=== PATIENT | female | born 1940 | race Caucasian/White ===

== ENCOUNTER 2025-04-17 14:41 | Emergency (ER) | payer OTHER, SELFPAY ==
[2025-04-17 14:46] VITALS: BP 91/55
[2025-04-17 15:35] LABS: % Basophils 0.3 % (0-2); % Eosinophils 0.8 % (0-6); % Immature Granulocytes 1.5 % (0-0.5); % Monocytes 3.9 % (1.7-9.3); % Neutrophils 89.5 % (42.2-75.2); Absolute Basophils 0.1 10^3/uL (0-0.2); Absolute Eosinophils 0.2 10^3/uL (0-0.7); Absolute Immature Granulocytes 0.3 10^3/uL (0-0.05); Absolute Lymphocytes 0.7 10^3/uL (1.2-3.4); Absolute Monocytes 0.7 10^3/uL (0.1-0.6); Absolute Neutrophils 16.3 10^3/uL (1.4-6.5); Hematocrit 24.5 % (37.0-47.0); Hemoglobin 7.8 g/dL (12.0-16.0); Mean Corp Hgb Conc. 31.8 g/dL (33.0-37.0); Mean Corpuscular Hgb 28.1 pg (27.0-31.0); Mean Corpuscular Volume 88.1 fL (81.0-99.0); Nucleated Red Blood Cells % 0 %; Platelet Count 828 10^3/uL (130-400); Red Blood Cell Count 2.78 10^6/uL (4.20-5.40); Red Cell Dist. Width 28.7 % (11.5-14.5); White Blood Cell Count 18.3 10^3/uL (4.8-10.8)
[2025-04-17 15:36] LABS: ALT (SGPT) 22 U/L (0-35); AST (SGOT) 22 U/L (14-36); Albumin 2.1 g/dl (3.5-5.0); Alkaline Phosphatase 128 U/L (38-126); Blood Urea Nitrogen 36 mg/dl (7-17); Calcium 8.2 mg/dl (8.4-10.2); Carbon Dioxide 22 mmol/L (22-30); Chloride 112 mmol/L (98-107); Glucose 111 mg/dl (70-99); Potassium 3.2 mmol/L (3.5-5.1); Sodium 140 mmol/L (135-145); Total Bilirubin 0.8 mg/dl (0.2-1.3); eGFR 37.56
[2025-04-17 16:55] VITALS: BP 117/58
[2025-04-17 17:00] VITALS: BP 112/55
[2025-04-17 18:00] VITALS: BP 105/54
[2025-04-17 18:29] VITALS: BP 106/54
[2025-04-17 18:51] LABS: COVID-19 Antigen Negative (Negative)
--- NOTE | 2025-04-17 18:58 | ED.GENMED ---
History of Present Illness
General
Chief Complaint: Breathing Problem
Source: patient
Time Seen by Provider: 04/17/25 17:43
History of Present Illness
History of Present Illness:
84-year-old female with past medical history of hypertension, hyperlipidemia and recently diagnosed stomach ulcer, admitted at [facility] due to profound anemia requiring at least 4 unit of packed red blood cells, started on
Protonix presenting back to the emergency department at the request of her primary care provider who did a telehealth visit today with the patient and patient reportedly had a pulse ox of 86% on room air. Son who is currently with the patient
stating that patient has had a slight decline over the last few weeks, patient now living with him which is why they are here at this facility today. He notes that patient has been eating less than she had previously but no reports of coughing or
aspiration with eating, no reported fevers at home, patient denying any abdominal pain, chest pain or shortness of breath. Son states only other thing he noticed with the patient is that she does appear a little bit pale again.
Past History
Past History
ED Past Medical History: HTN, Hypercholesterolemia and Other (Anemia/GI bleeding)
ED Past Surgical History: Urological
Social History
Tobacco: Non-smoker
Alcohol: None
Drug: None
Personal:
Living: with family
Review of Systems
Review of Systems
All Other Systems: ROS reviewed and negative except as documented in HPI and ROS
Phy Exam
Physical Exam
Physical Exam:
GENERAL: Alert , in no apparent distress, thin, appears older than stated age
EYE: clear conjunctiva b/l
HEAD: NCAT
ENT: o/p clr, mmm.
CARDIAC: Regular rate and rhythm .
LUNGS: Clear breath sounds bilaterally, no acute respiratory distress, no wheezes/rales/rhonchi
ABDOMEN: Soft, without focal tenderness, no r/g, no cvat, negative Og sign, no tenderness at McBurney's point
RECTAL EXAM: Chaperoned by ED SAURABH Gambino, light brown stool, trace heme positive
NEUROLOGICAL: Alert and oriented
SKIN: Warm and dry, skin intact.
MUSCULOSKELETAL: No edema, well perfused.
PSYCH: Normal and appropriate interaction.
Scores
Heart Failure Risk
Heart Failure Risk Score: Not Applicable
Heart Score for Chest Pain Patients
STEMI patient?: Not applicable
Withdrawal Assessment of Alcohol
Withdrawal Assessment Completed?: Not applicable
Course
Orders/Labs/Results
Orders:
Orders
04/17/25 14:51
Electrocardiogram (*1) Urgent
Reason for Study: Shortness of Breath
EKG- Treatment ONCE
04/17/25 15:13
CMP [Comprehensive Metabolic Panel] Urgent
Complete Blood Count/With Diff Urgent
04/17/25 17:50
CR Chest - 2 Views Urgent
Comment:
Reason For Exam: SOB
04/17/25 18:08
COVID-19 Antigen Urgent
Source: Nasal Swab
Influenza A+B Rapid Molecular Urgent
YURI Source: Nasal Swab
Specimen Description:
04/17/25 18:38
0.9% Sodium Chloride 500 ml [Nss] 500 ml IV BOLUS
Cefepime HCl [Maxipime] 1,000 mg IV NOW STA
Potassium Chloride 10% Elixir [KCl Elixir] 40 meq PO NOW STA
04/17/25 18:54
Sterile Water [Sterile Water For Injection] 10 ml .ROUTE .STK-MED ONE
Abnormal Lab Results
04/17/25
15:13
WBC 18.3 H 10^3/uL
(4.8-10.8)
RBC 2.78 L 10^6/uL
(4.20-5.40)
Hgb 7.8 L g/dL
(12.0-16.0)
Hct 24.5 L %
(37.0-47.0)
MCHC 31.8 L g/dL
(33.0-37.0)
RDW 28.7 H %
(11.5-14.5)
Plt Count 828 H 10^3/uL
(130-400)
Abs Immat Gran (auto) 0.3 H 10^3/uL
(0-0.05)
Absolute Neuts (auto) 16.3 H 10^3/uL
(1.4-6.5)
Absolute Lymphs (auto) 0.7 L 10^3/uL
(1.2-3.4)
Absolute Monos (auto) 0.7 H 10^3/uL
(0.1-0.6)
Immature Gran % 1.5 H %
(0-0.5)
Neutrophils % 89.5 H %
(42.2-75.2)
Lymphocytes % 4.0 L %
(20.5-51.1)
Potassium 3.2 L mmol/L
(3.5-5.1)
Chloride 112 H mmol/L
(98-107)
BUN 36 H mg/dl
(7-17)
Creatinine 1.4 H mg/dL
(0.6-1.0)
Glucose 111 H mg/dl
(70-99)
Calcium 8.2 L mg/dl
(8.4-10.2)
Alkaline Phosphatase 128 H U/L
(38-126)
Total Protein 5.0 L g/dl
(6.3-8.2)
Albumin 2.1 L g/dl
(3.5-5.0)
04/17/25 15:13
04/17/25 15:13
Vital Signs
Initial and Last Documented VS:
Initial Vital Signs
Temp Pulse Resp BP Pulse Ox
98.3 F 95 18 91/55 97
04/17/25 14:46 04/17/25 14:46 04/17/25 14:46 04/17/25 14:46 04/17/25 14:46
Last Documented Vital Signs
Temp Pulse Resp BP Pulse Ox
98.3 F 83 24 106/56 97
04/17/25 14:46 04/17/25 19:15 04/17/25 19:15 04/17/25 19:07 04/17/25 18:35
[employer] consulted with Physician
[employer] consulted with physician?: Yes
Name of Physician Consulted: Dr. Vargas
MDM/Problems Addressed
Differential Diagnosis Includes:
Pneumonia, aspiration, recurring GI bleeding, malignancy
MDM/Problems Addressed:
84-year-old female presenting to the emergency department for evaluation at the request of primary care provider after patient reportedly had some hypoxia at her telehealth visit today. Patient currently without complaints. Pulse ox 97% on arrival
and at time of my exam persistently between 94 to 97% on room air. Patient does appear chronically ill-appearing. Labs were initiated in triage which shows a leukocytosis of 18,000, hemoglobin is 7.8 and a slight leftward shift. Patient also has
a potassium of 3.2 and a mild ELEONORA. Added on a chest x-ray, COVID and flu test. Unclear as to patient's baseline hemoglobin as she has never been here before. Given her age, chronic medical conditions and recent hospitalization I do anticipate
patient will likely need to be admitted for continued evaluation and treatment.
Chronic conditions affecting care: Other (Gastric ulcer/GI bleeding)
Acute Exacerbation and/or Progression of Chronic Illness: Other (GI bleeding)
*Radiology
Radiology exam reviewed: preliminary read by ED provider (Suspected bilateral pneumonia, left-sided pleural effusion)
*Pulse Oximetry
Patient hypoxic: no
*EKG
Heart Rate: 94
Rate: normal
Rhythm: sinus
Interval: short SD
Ischemia: ST depression (Lateral leads)
*Senior Marketing Associate Interpretation
Rate: normal
Rhythm: sinus
*Critical Care Note
Total Time (30-74mins, 75-104mins- exclusive of procedures): Not Applicable
Patient Management
Social determinants of health affecting care: Living situation and Strong social support
Escalation/DeEscalation of care consider admission/obs:
Patient's chest x-ray shows bilateral pneumonia, left-sided pleural effusion. Given her presenting symptoms, lab findings and chest x-ray findings I recommended admission to the hospital for IV antibiotics and trending of her hemoglobin. Patient
states she does not wish to stay in the emergency department and wishes to sign out against my medical advice. I did explain to the patient as well as her son potential risks of leaving AGAINST MEDICAL ADVICE including worsening respiratory,
worsening infection, permanent disability and . Patient still expressed understanding. Patient will be going home with her son who does feel comfortable taking the patient home. Patient does have visiting nurses coming to the home as well as
home physical therapy. I also messaged the patient's primary care provider via [place] text to let them know that patient will be leaving AGAINST MEDICAL ADVICE and that they will hopefully be able to follow-up with the patient in the coming 24 to 48
hours to ensure patient feeling better. I did send prescriptions for Augmentin and doxycycline for the patient's pneumonia to their pharmacy. Patient did receive a dose of Maxipime here prior to discharge for suspected hospital-acquired pneumonia.
Both patient and son are aware that they may return to the emergency department at any time if they change their mind or if it is too get worse upon leaving the emergency department.
ED Attending Note
-
Portions of this chart may have been created with voice recognition software.� Occasional wrong word or��sound alike� substitutions may have occurred due to the inherent limitations of voice recognition software.
Discharge Plan
Departure
Patient Disposition: Against Medical Advice
Date of Disposition: 04/17/25
Time of Disposition: 19:31
Patient with high blood pressure during this ER visit?: No
Discharge Problem:
Pneumonia, Anemia, ELEONORA (acute kidney injury)
Instructions: Pneumonia in adults - Discharge instructions
Prescriptions:
New
doxycycline hyclate 100 mg tablet
100 mg PO BID 10 Days Qty: 20 0RF
amoxicillin-pot clavulanate 875-125 mg tablet
1 tab PO BID 10 Days Qty: 20 0RF
Referrals:
Jennifer Holt MD [Family Provider, Internal Medicine]
Interventions
Interventions:
*Risk Screen - Suicide Last Done: 04/17/25 14:46
*Neglect/Abuse Screening Last Done: 04/17/25 14:46
ED- Cardiac Assessment Last Done: 04/17/25 17:00
ED- Pulmonary Assessment Last Done: 04/17/25 17:00
Discharge Date and Time
Print Language: TELUGU
[2025-04-17] MEDS: NSS 500 IV (19:00)
[2025-04-17] MEDS: MAXIPIME 1000 MG IV (19:01)
[2025-04-17] MEDS: KCL ELIXIR 40 MEQ PO (19:01)
[2025-04-17 19:07] VITALS: BP 106/56
== END 2025-04-17 19:40 | disposition left against medical advice (07) ==
LOC: EMR 14:41
PROVIDERS: Emergency Medicine; Physician Assistant Medical; EMERGENCY PHYSICIAN Emergency Medicine; FAMILY PHYSICIAN Hospitalist
DX: J18.9 Pneumonia, unspecified organism (principal); D64.9 Anemia, unspecified; N17.9 Acute kidney failure, unspecified; E78.00 Pure hypercholesterolemia, unspecified; K25.4 Chronic or unspecified gastric ulcer with hemorrhage; I10 Essential (primary) hypertension
CPT/HCPCS: 99285; 96374; 96361; 71046; 80053; 85025; 87502; 87811; 93005

== ENCOUNTER → 2025-06-20 17:36 | Outpatient (REF) | payer OTHER, SELFPAY | LOC: RCS 17:36 | PROVIDERS: ATTENDING PHYSICIAN Hospitalist | DX: R60.0 Localized edema (principal) | CPT/HCPCS: 93306 ==